=== PATIENT | female | born 1975 | race Caucasian/White ===

== ENCOUNTER 2020-12-21 12:58 | Outpatient (CLI) | payer OTHER, SELFPAY ==
--- NOTE | ~2020-12-21 | XR_ITS ---
EXAMINATION: XR shoulder RT min 2V DATE: 12/21/2020 13:42 INDICATION: Right shoulder pain. TECHNIQUE: 4 views of right shoulder were obtained. COMPARISON: None. FINDINGS: Bone alignment is normal. No fracture. There is moderate osteoarthritis of acromioclavicula r joint and mild osteoarthritis of glenohumeral joint. There is mild calcific tendinitis of the rotat or cuff. IMPRESSION: 1. Polyarticular osteoarthritis. 2. Mild calcific tendinitis of the rotator cuff. Reviewed, dictated and finalized at location A.
--- NOTE | ~2020-12-21 | XR_ITS ---
XR cervical spine 4-5V 12/21/2020 13:42 Indication: Neck pain Procedure: 4 view cervical spine Comparison: No prior studies for comparison. Findings: Straightening of cervical lordosis. No prevertebral soft tissue swelling. Odontoid process within normal limits. Lung apices are normal. There is mild uncinate degenerative change at C5-6 and C6-7. There is disc narrowing at C6-7. Impression: 1: Mild cervical spondylosis. Reviewed, dictated and finalized at location A. Impression: 1: Mild cervical spondylosis.
== END 2020-12-21 12:59 | disposition home or self-care (01) ==
PROVIDERS: PCP Internal Medicine; Visit Provider Internal Medicine
DX: M47.892 Other spondylosis, cervical region (principal); M19.011 Primary osteoarthritis, right shoulder; M75.31 Calcific tendinitis of right shoulder
CPT/HCPCS: 72050; 73030

== ENCOUNTER 2021-05-30 10:45 | Outpatient (CLI) | payer OTHER, SELFPAY ==
--- NOTE | ~2021-05-30 | MM_ITS ---
EXAMINATION: MM screening sadia BI w yamila HISTORY: Screening TECHNIQUE: Craniocaudal and mediolateral oblique 3-D tomosynthesis images were obtained and synthetic 2-D images were generated. CAD analysis was submitted and interpreted. COMPARISON: Comparison to multiple prior studies sequentially, with oldest reviewed study dated 11/06. BREAST PARENCHYMAL COMPOSITION: Breast composed of scattered areas of fibroglandular density FINDINGS: There is no evidence of suspicious mass, calcification, or architectural distortion to sugg est malignancy in either breast. There has been no suspicious interval change. IMPRESSION: 1. No mammographic evidence of malignancy. 2. Recommend routine screening mammography in one year. BI-RADS Category 1: Negative Reviewed, dictated and finalized at location A.
== END 2021-05-30 10:46 | disposition home or self-care (01) ==
LOC: ANHIMG 10:46
PROVIDERS: PCP Internal Medicine; Visit Provider Obstetrics & Gynecology
DX: Z12.31 Encounter for screening mammogram for malignant neoplasm of breast (principal)
CPT/HCPCS: 77063; 77067

== ENCOUNTER 2022-01-03 00:21 | Day surgery (SDC) | payer OTHER, SELFPAY ==
[2021-12-26 13:33] VITALS: BMI 42.5
[2022-01-03 11:27] VITALS: BP 138/92; PULSE 72; RESP 18; TEMP 36.2; O2SAT 98
--- NOTE | 2022-01-03 11:36 | PM.HPGS ---
History of Present Illness History of Present Illness Consent: Risks, benefits, and alternatives have been discussed and questions answered. Patient agrees to proceed with procedure. Chief complaint: rectal bleeding Narrative: Ladi Mcpherson is a 46 year old female with intermittent rectal bleeding, never had colonoscopy Review of Systems Constitutional: Constitutional: Denies headache(s) and Denies weakness Eyes: Eyes: Denies blurry vision ENT: Reports Normal hearing present, Denies headache(s) and Denies neck pain Cardiovascular: Cardiovascular: Denies chest pain and Denies dyspnea Respiratory: Respiratory: Denies dyspnea Gastrointestinal: Gastrointestinal: Reports no additional gastrointestinal complaints Genitourinary: Genitourinary: Denies dysuria Musculoskeletal: Musculoskeletal: Denies neck pain Integumentary/Breasts: Skin/Breast: Denies dry skin Neurologic: Reports Normal hearing present, Denies headache(s) and Denies weakness Psychiatric: Psychiatric: Denies anxiety Endocrine: Endocrine: Denies change in body appearance Hematologic/Lymphatic: Hematologic/Lymphatic: Denies easy bleeding Allergic/Immunologic: Allergic/Immunologic: Denies urticaria PMFSH Past Medical History Medical History BMI 40.0-44.9, adult Cervicalgia Encounter to establish care Fatigue HTN (hypertension) Hyperlipidemia Hypertension Lumbago Multiple joint pain Muscle cramp Otitis externa Prediabetes Rectal bleed Right knee pain Right shoulder pain Screening for diabetes mellitus (DM) Tobacco abuse Surgical History Surgical History delivery delivered 1994,1999,2004 History of tonsillectomy and adenoidectomy Family History Family History Grandparent Hypertension Family history of coronary artery disease Diabetes mellitus Alcoholism Mother Family history of malignant neoplasm of thyroid Sibling Alcoholism Other Alcoholism Heart disease Other Ovarian cancer Daughter Depression Anxiety Sibling Thyroid disease Social History Social History Years smoked: 30 Smoking status: Current every day smoker Tobacco type: cigarettes Alcohol intake: current Drinks per week: 10 Substance use: never Substance use type: does not use Living arrangements: with family Spiritual care concerns: No Meds Home Medications and Allergies Home Medications Medication Instructions Recorded Confirmed Type cyclobenzaprine 10 mg tablet 10 mg PO BID PRN muscle spasm #60 08/16/21 12/26/21 Rx tabs bupropion HCl 150 mg 24 hr tablet, 150 mg PO QAM #30 tabs 11/18/21 12/26/21 Rx extended release (Wellbutrin XL) hydrochlorothiazide 12.5 mg tablet 12.5 mg PO DAILY #30 tabs 11/18/21 12/26/21 Rx Allergies Allergy/AdvReac Type Severity Reaction Status Date / Time morphine AdvReac Itching Verified 01/03/22 11:16 Vital Signs Vital Signs - 24 hr 01/03/22 11:27 Temperature 97.2 F L Pulse Rate 72 Respiratory Rate 18 Blood Pressure 138/92 H Pulse Oximetry 98 Oxygen Delivery Room Air Exam Const: General: comfortable and no acute distress HENMT: Face/Nose/Sinus: Normal nares present Eyes: General: appearance normal, both eyes and all related structures Neck: Neck: no JVD Resp: Auscultation: clear to auscultation bilaterally Cardio: Rate: regular rate Rhythm: regular rhythm GI: Inspection: non-distended GI Palp: Yes Soft to palpation Skin: General skin exam: normal color Neuro: General: gait normal Speech: normal speech Extrem: General: normal to inspection Psych: Mental Status: mental status grossly normal Assessment and Plan Assessment and plan (1) Rectal bleed: Code(s): K62.5 - Hemorrhage of anus and rectum Status: Acute
[2022-01-03] MEDS: LACTATED RINGERS 1,000 ML 150 ML IV CONT (11:39)
--- NOTE | 2022-01-03 11:48 | WPDANESEPPF ---
Anes - Initial Pre Proc Eval Procedure: Operation Date: 01/03/22 12:30 Proposed Procedures p Colonoscopy - Juan Jose Puri MD Date/Time: 01/03/22 11:48 Surgeon: Juan Jose Puri MD Pre Op Diagnosis: rectal bleeding Patient Data Age: 46 Gender: F Height: 1.65 m Weight: 117.5 kg Last Vital Signs Temp 36.2 C L 01/03/22 11:27 Pulse 72 01/03/22 11:27 Resp 18 01/03/22 11:27 BP 138/92 H 01/03/22 11:27 Pulse Ox 98 01/03/22 11:27 O2 Del Method Room Air 01/03/22 11:27 Allergies Allergy/AdvReac Type Severity Reaction Status Date / Time morphine AdvReac Itching Verified 01/03/22 11:16 Home Medications Medication Instructions Recorded Confirmed Type cyclobenzaprine 10 mg tablet 10 mg PO BID PRN muscle spasm #60 08/16/21 12/26/21 Rx tabs bupropion HCl 150 mg 24 hr tablet, 150 mg PO QAM #30 tabs 11/18/21 12/26/21 Rx extended release (Wellbutrin XL) hydrochlorothiazide 12.5 mg tablet 12.5 mg PO DAILY #30 tabs 11/18/21 12/26/21 Rx Patient hx anesthesia problems: none Family hx anesthesia problems: none Results Review: All pre-operative results and documents have been reviewed as part of the pre-operative evaluation. [facility] Past Medical History Medical History BMI 40.0-44.9, adult Cervicalgia Encounter to establish care Fatigue HTN (hypertension) Hyperlipidemia Hypertension Lumbago Multiple joint pain Muscle cramp Otitis externa Prediabetes Rectal bleed Right knee pain Right shoulder pain Screening for diabetes mellitus (DM) Tobacco abuse Surgical History Surgical History delivery delivered 1994,1999,2004 History of tonsillectomy and adenoidectomy Family History Family History Grandparent Hypertension Family history of coronary artery disease Diabetes mellitus Alcoholism Mother Family history of malignant neoplasm of thyroid Sibling Alcoholism Other Alcoholism Heart disease Other Ovarian cancer Daughter Depression Anxiety Sibling Thyroid disease Social History Social History Years smoked: 30 Smoking status: Current every day smoker Tobacco type: cigarettes Alcohol intake: current Drinks per week: 10 Substance use: never Substance use type: does not use Living arrangements: with family Spiritual care concerns: No Anes - Eval Final PreProcedure Day of Procedure 01/03/22 11:48 Patient weight: morbidly obese Heart: regular rate and rhythm Lungs: clear to auscultation Airway: Mallampati scale class II Neurological: alert and oriented Last oral intake: >/= 8 hours ASA classification: III Emergent: no Anesthetic plan: proceed Anesthesia type and monitoring: general GIVS and standard monitoring Results Review: All pre-operative results and documents have been reviewed as part of the pre-operative evaluation. Informed Consent: The patient's anesthetic plan and its attendant risks and benefits were discussed with the patient/family/POA. Questions were solicited and answers provided to the satisfaction of the patient/family/POA.
[2022-01-03 12:05] VITALS: BP 128/85; PULSE 74; RESP 25; O2SAT 99
[2022-01-03 12:15] VITALS: BP 112/73; PULSE 67; RESP 88; O2SAT 100
[2022-01-03 12:25] VITALS: BP 117/80; PULSE 67; RESP 85; O2SAT 100
== END 2022-01-03 12:25 | disposition home or self-care (01) ==
PROVIDERS: PCP Nurse Practitioner Family; Visit Provider Internal Medicine Gastroenterology
PROC: 0DJD8ZZ Inspection of Lower Intestinal Tract, Via Natural or Artificial Opening Endoscopic (ICD-10-PCS; CPT 45378; principal; 2022-01-03 12:30)
DX: K62.5 Hemorrhage of anus and rectum (principal); K64.8 Other hemorrhoids; I10 Essential (primary) hypertension; E78.5 Hyperlipidemia, unspecified; R73.03 Prediabetes; F17.210 Nicotine dependence, cigarettes, uncomplicated
CPT/HCPCS: 45378; J2704; J7120

== ENCOUNTER 2022-12-02 07:30 | Outpatient (CLI) | payer OTHER, SELFPAY ==
--- NOTE | ~2022-12-02 | MM_ITS ---
EXAMINATION: MM screening sadia BI w yamila HISTORY: Screening mammogram TECHNIQUE: Craniocaudal and mediolateral oblique 3-D tomosynthesis images were obtained and synthetic 2-D images were generated. CAD analysis was submitted and interpreted. COMPARISON: 05/30/2021, 11/10/2017 bilateral screening mammogram examinations BREAST PARENCHYMAL COMPOSITION: There are scattered areas of fibroglandular density. FINDINGS: There is no evidence of suspicious mass, calcification, or architectural distortion to sugg est malignancy in either breast. There has been no suspicious interval change. IMPRESSION: 1. No mammographic evidence of malignancy. 2. Recommend routine screening mammography in one year. BI-RADS Category 1: Negative Reviewed, dictated and finalized at location A.
== END 2022-12-02 07:31 | disposition home or self-care (01) ==
PROVIDERS: PCP Nurse Practitioner Family; Visit Provider Obstetrics & Gynecology
DX: Z12.31 Encounter for screening mammogram for malignant neoplasm of breast (principal)
CPT/HCPCS: 77063; 77067

== ENCOUNTER 2024-05-30 08:50 | Outpatient (CLI) | payer OTHER, SELFPAY ==
--- NOTE | ~2024-05-30 | MM_ITS ---
EXAMINATION: MM screening sadia BI w yamila HISTORY: Screening TECHNIQUE: Craniocaudal and mediolateral oblique 3-D tomosynthesis images were obtained and synthetic 2-D images were generated. CAD analysis was submitted and interpreted. COMPARISON: Comparison to multiple prior studies sequentially, with oldest reviewed study dated 11/06. BREAST PARENCHYMAL COMPOSITION: Not dense: There are scattered areas of fibroglandular density. FINDINGS: There is no evidence of suspicious mass, calcification, or architectural distortion to sugg est malignancy in either breast. There has been no suspicious interval change. IMPRESSION: 1. No mammographic evidence of malignancy. 2. Recommend routine screening mammography in one year. BI-RADS Category 1: Negative Reviewed, dictated and finalized at location A.
--- OUTSIDE RECORDS SUMMARY | 2024-05-30 09:22 | XMS_ITS | CONTINUITY OF CARE DOCUMENT ---
Author Name analy beckford Address Unknown Organization [facility] Address [address] [place] [address] Phone [phone] Care Team Providers Care Box Stacker Name Role Phone Juan Hatch MD Unavailable VU PATEL MD Unavailable VU PATEL MD Unavailable [phone] INSURANCE PROVIDERS Payer name Policy type / Coverage type [place] red republican ID [facility] [employer] [id number]
--- OUTSIDE RECORDS SUMMARY | 2024-05-30 09:22 | XMS_ITS | Clinical Summary ---
Author Organization [facility] Address [address] [place] [address] Care Team Providers Care Disk Recoater Name Role Phone Stuart Zayas MD Primary Care Provider Source Comments [facility],non-owned Affiliates and Associated Physician Practices is amultiple site organization consisting of ambulatory clinics and hospital sitesin [place], [place], [place] and [place]. This disclosure is being madepursuant to the Care Everywhere program and may not contain all information available regarding this patient. Last updated 17.[facility] Allergies No known active allergies Immunizations Name Administration Dates Next Due INFLUENZA VACCINE, QUADR. (F LUZONE; FLULAVAL; FLUARIX; AFLURIA QUADRIVALENT; 6MO+), 0.5 ML (IIV4) 01/04/2020 Social History Tobacco Use Types Packs/Day Years Used Date Smoking Tobacco: Never Assessed Sex and Gender Information Value Date Recorded Sex Assigned at Not on file Gender Identity Not on file Sexual Orientation Not on file Plan of Treatment Health Maintenance Due Date Last Done Comments COLOGUARD (AGES 45-75) - COL ON CA SCREENING 1976 COLON MONITORING 1976 COLONOSCOPY - COLON CA SCREENING 1976 CT COLONOGRAPHY - COLON CA SCREENING 1976 Colorectal Cancer Screening 1976 FIT - COLON CA SCREENING 1976 FLEX SIG - COLON CA SCREENING 1976 LIPID TESTING 1976 MAMMOGRAM 1976 PAP SMEAR 1976 HIV SCREENING 02/05/1991 HEPATITIS C SCREENING 02/01/1994 DTAP/TDAP/TD VACCINES (1 - Tdap) 02/05/1995 HEPATITIS B VACCINE (1 of 3 - 19+ 3-dose series) 02/05/1995 COVID-19 VACCINE (2023-2 5 season) 2023 INFLUENZA VACCINE (#1) 2023 01/04/2020 DEPRESSION SCREENING 02/24/2024 ZOSTER VACCINE (1 of 2) 02/05/2026 HIB VACCINE Aged Out No longer eligi ble based on patient's age to complete this topic HPV VACCINE Aged Out No longer eligi ble based on patient's age to complete this topic MENINGOCOCCAL (Group B) VACC INE SHARED DECISION-MAKING Aged Out No longer eligibl e based on patient's age to complete this topic MENINGOCOCCAL GROUPS A/C/Y/W VACCINE Aged Out No longer eligible b ased on patient's age to complete this topic PNEUMOCOCCAL VACCINE Aged Out No long er eligible based on patient's age to complete this topic Care Teams Disk Recoater Relationship Specialty Start Date End Date Stuart Zayas MD [id number] [address] PCP - General Internal Medicine 01/04/20
== END 2024-05-30 08:51 | disposition home or self-care (01) ==
LOC: ANHIMG 08:52
PROVIDERS: PCP Nurse Practitioner Family; Visit Provider Obstetrics & Gynecology
DX: Z12.31 Encounter for screening mammogram for malignant neoplasm of breast (principal)
CPT/HCPCS: 77063; 77067